=== PATIENT | female | born 1985 | race American Indian/Alaskan Native ===

== ENCOUNTER 2017-03-01 01:30 | Emergency (ER) | payer SELFPAY ==
[2017-03-01 02:01] LABS: Basophils % (Auto) 1.1 % (0.0-1.8); Hematocrit 30.7 % (30.3-42.9); Hemoglobin 9.6 gm/dl (10.1-14.3); Mean Corpuscular HGB Conc 31 % (30-34); Mean Corpuscular Volume 72 fl (79-97); Platelet Count 306 K/mm3 (140-440); Red Blood Count 4.27 M/mm3 (3.65-5.03); Red Cell Distribution Width 19.9 % (13.2-15.2); White Blood Count 5.6 K/mm3 (4.5-11.0)
[2017-03-01 02:06] LABS: Mean Corpuscular Hemoglobin 23 pg (28-32)
[2017-03-01 02:19] LABS: Anion Gap 21 mmol/L; BUN/Creatinine Ratio 8.88; Blood Urea Nitrogen 8 mg/dL (7-17); Calcium 8.6 mg/dL (8.4-10.2); Carbon Dioxide 21 mmol/L (22-30); Chloride 100.9 mmol/L (98-107); Glucose 91 mg/dL (65-100); Potassium 3.8 mmol/L (3.6-5.0); Sodium 139 mmol/L (137-145)
[2017-03-01 03:07] LABS: Alanine Aminotransferase 9 units/L (7-56); Albumin 3.8 g/dL (3.9-5); Alkaline Phosphatase 65 units/L (35-129); Anion Gap 19 mmol/L; Blood Urea Nitrogen 8 mg/dL (7-17); Calcium 8.8 mg/dL (8.4-10.2); Carbon Dioxide 22 mmol/L (22-30); Chloride 101.7 mmol/L (98-107); Glucose 99 mg/dL (65-100); Potassium 3.8 mmol/L (3.6-5.0); Sodium 139 mmol/L (137-145); Total Protein 7.5 g/dL (6.3-8.2)
[2017-03-01] MEDS ORDERED: NACL 0.9% 1000 ML 1,000 ML IV ONE ×2 (03:08→04:16)
--- NOTE | 2017-03-01 03:43 | Cat Scan Report ---
FINAL REPORT EXAM: CT HEAD/BRAIN WO CON HISTORY: syncope, drowsiness COMPARISON: None available. TECHNIQUE: Axial images obtained skull base through vertex. FINDINGS: No acute intracranial hemorrhage, midline shift or pathologic extra axial fluid collection. Ventricles and cisterns are normal in size and configuration for the patient's age. Kelsey-white differentiation preserved. Calvarium grossly intact. Visualized para-nasal sinuses and mastoid air cells are clear. Visualized orbits are grossly unremarkable. IMPRESSION: No grossly acute intracranial abnormality.
--- NOTE | 2017-03-01 04:20 | Emergency Department Report ---
ED Syncope HPI - General Chief Complaint: Syncope Stated Complaint: AMS Time Seen by Provider: 03/01/17 03:02 Source: patient Exam Limitations: no limitations - History of Present Illness Initial Comments: 31-year-old female with no known past medical history presents to the hospital after being unconscious by a friend. Patient is drowsy but arousable to tactile stimulation. She falls asleep during history taking and does not recall what happened prior to arrival. She is oriented to place and year. Per EMS sheet patient's friend went to the store and when she returned she found the patient unresponsive laying on the bed with incontinence. After several minutes patient was able to answer questions to person place but not time drug paraphernalia (crack pipe) was noted on patient's bed however, patient denied using drugs this evening. EMS reports. She does complain of feeling tired and she was able to answer questions although drowsy. No complaints of tongue laceration or abrasion. - Related Data Allergies/Adverse Reactions: Allergies No Known Allergies Allergy (Verified 03/01/17 01:59) Home Medications: Ambulatory Orders No Known Home Medications [No Reported Home Medications] 03/01/17 ED Review of Systems ROS: Stated complaint: AMS Other details as noted in HPI Comment: All other systems reviewed and negative Other: Constitutional: No fevers chills Eyes: No eye pain visual changes ENT: No ear pain or throat pain Neck: Denies pain Respiratory: Denies cough wheezing shortness of breath Cardiovascular: Denies chest pain, palpitations, syncope GI: Denies abdominal pain, nausea, vomiting, diarrhea : Denies dysuria Musculoskeletal: Denies back pain Skin: Denies rash, lesions, erythema Neurologic: Denies headache, numbness, weakness Psychiatric: Denies suicidal ideation, hallucinations ED Past Medical Hx - Past Medical History Previous Medical History?: No - Surgical History Past Surgical History?: No - Social History Smoking Status: Current Every Day Smoker Substance Use Type: None - Medications Home Medications: Home Medications Medication Instructions Recorded Confirmed Last Taken Type No Known Home Medications [No 03/01/17 03/01/17 Unknown History Reported Home Medications] ED Physical Exam - General Limitations: No Limitations - Other Other exam information: General: Drowsy and falling asleep intermittently Eyes exam: Normal appearance, pupils equal reactive to light, extraocular movements intact. Patient has a colored contact in her right eye but it is missing from the left ENT: Moist mucous membrane, normal oropharynx Neck exam: Normal inspection, full range of motion, no meningismus nontender Respiratory exam: Clear to auscultation bilateral, no wheezes, rales, crackles Cardiovascular: Normal rate and rhythm, normal heart sounds Abdomen: Soft, nondistended, and nontender, with normal bowel sounds, no rebound, or guarding Extremity: Full range of motion normal inspection no deformity Back: Normal Inspection, full range of motion, no tenderness Neurologic: Drowsy but arousable to tactile stimulation, oriented x3, cranial nerves intact, no motor or sensory deficit Psychiatric: normal affect, normal mood Skin: Warm, dry, intact ED Course Vital Signs 03/01/17 03/01/17 03/01/17 01:37 01:50 01:58 Temperature 97.7 F 97.7 F Pulse Rate 102 H 88 Respiratory 16 16 Rate Blood Pressure 138/88 138/88 Blood Pressure 138/88 [Left] O2 Sat by Pulse 100 99 Oximetry 03/01/17 03/01/17 03/01/17 02:00 02:03 02:30 Temperature Pulse Rate 94 H Respiratory Rate Blood Pressure 137/85 138/88 Blood Pressure [Left] O2 Sat by Pulse 99 100 Oximetry 03/01/17 03/01/17 03/01/17 03:00 04:46 05:00 Temperature Pulse Rate Respiratory Rate Blood Pressure 142/91 137/101 125/91 Blood Pressure [Left] O2 Sat by Pulse 100 100 100 Oximetry 03/01/17 03/01/17 03/01/17 05:30 06:00 06:30 Temperature Pulse Rate Respiratory Rate Blood Pressure 142/91 133/87 133/87 Blood Pressure [Left] O2 Sat by Pulse 100 100 100 Oximetry 03/01/17 03/01/17 03/01/17 07:00 07:10 07:30 Temperature 98.2 F Pulse Rate Respiratory Rate Blood Pressure 125/86 125/86 Blood Pressure [Left] O2 Sat by Pulse 100 100 Oximetry 03/01/17 03/01/17 03/01/17 08:00 08:30 09:00 Temperature Pulse Rate Respiratory Rate Blood Pressure 121/81 121/81 132/94 Blood Pressure [Left] O2 Sat by Pulse 100 100 100 Oximetry 03/01/17 03/01/17 03/01/17 10:00 11:00 12:00 Temperature Pulse Rate Respiratory Rate Blood Pressure 135/95 135/95 124/89 Blood Pressure [Left] O2 Sat by Pulse 100 100 100 Oximetry 03/01/17 03/01/17 03/01/17 13:00 14:00 15:00 Temperature Pulse Rate Respiratory Rate Blood Pressure 124/89 138/87 139/78 Blood Pressure [Left] O2 Sat by Pulse 100 100 100 Oximetry 03/01/17 03/01/17 03/01/17 16:00 17:00 18:00 Temperature Pulse Rate Respiratory Rate Blood Pressure 138/97 124/84 124/84 Blood Pressure [Left] O2 Sat by Pulse 100 100 100 Oximetry 03/01/17 18:41 Temperature 98.2 F Pulse Rate Respiratory Rate Blood Pressure Blood Pressure [Left] O2 Sat by Pulse Oximetry - Reevaluation(s) Reevaluation #1: 03/01/17 05:54 pt received 1 L of IV fluids via EMS an additional liter in the ed ED Medical Decision Making - Lab Data Result diagrams: 03/01/17 01:47 03/01/17 02:27 Lab Results 03/01/17 03/01/17 03/01/17 Range/Units 01:47 01:47 01:47 WBC (4.5-11.0) K/mm3 RBC (3.65-5.03) M/mm3 Hgb (10.1-14.3) gm/dl Hct (30.3-42.9) % MCV (79-97) fl MCH (28-32) pg MCHC (30-34) % RDW (13.2-15.2) % Plt Count (140-440) K/mm3 Lymph % (Auto) (13.4-35.0) % Coffee % (Auto) (0.0-7.3) % Eos % (Auto) (0.0-4.3) % Baso % (Auto) (0.0-1.8) % Lymph # (1.2-5.4) K/mm3 Coffee # (0.0-0.8) K/mm3 Eos # (0.0-0.4) K/mm3 Baso # (0.0-0.1) K/mm3 Seg Neutrophils % (40.0-70.0) % Seg Neutrophils # (1.8-7.7) K/mm3 Sodium 139 (137-145) mmol/L Potassium 3.8 (3.6-5.0) mmol/L Chloride 100.9 (98-107) mmol/L Carbon Dioxide 21 L (22-30) mmol/L Anion Gap 21 mmol/L BUN 8 (7-17) mg/dL Creatinine 0.9 (0.7-1.2) mg/dL Estimated GFR > 60 ml/min BUN/Creatinine Ratio 8.88 % Glucose 91 (65-100) mg/dL POC Glucose (70-105) Lactic Acid (0.7-2.0) mmol/L Calcium 8.6 (8.4-10.2) mg/dL Magnesium (1.7-2.3) mg/dL Total Bilirubin (0.1-1.2) mg/dL AST (5-40) units/L ALT (7-56) units/L Alkaline Phosphatase (35-129) units/L Total Creatine Kinase (30-135) units/L Total Protein (6.3-8.2) g/dL Albumin (3.9-5) g/dL Albumin/Globulin Ratio % TSH (0.270-4.200) mlU/mL HCG, Qual Negative (Negative) Urine Color (Yellow) Urine Turbidity (Clear) Urine pH (5.0-7.0) Ur Specific [place] (1.003-1.030) Urine Protein (Negative) mg/dL Urine Glucose (UA) (Negative) mg/dL Urine Ketones (Negative) mg/dL Urine Blood (Negative) Urine Nitrite (Negative) Urine Bilirubin (Negative) Urine Urobilinogen (<2.0) mg/dL Ur Leukocyte Esterase (Negative) Urine WBC (Auto) (0.0-6.0) /HPF Urine RBC (Auto) (0.0-6.0) /HPF Urine Mucus /HPF Salicylates (2.8-20.0) mg/dL Urine Opiates Screen Urine Methadone Screen Acetaminophen (10.0-30.0) ug/mL Ur Barbiturates Screen Ur Phencyclidine Scrn Ur Amphetamines Screen U Benzodiazepines Scrn Urine Cocaine Screen U Marijuana (THC) Screen Drugs of Abuse Note Plasma/Serum Alcohol < 0.01 (0-0.07) gm% 05/18/17 05/18/17 05/18/17 Range/Units 01:47 01:47 01:47 WBC 5.6 (4.5-11.0) K/mm3 RBC 4.27 (3.65-5.03) M/mm3 Hgb 9.6 L (10.1-14.3) gm/dl Hct 30.7 (30.3-42.9) % MCV 72 L (79-97) fl MCH 23 L (28-32) pg MCHC 31 (30-34) % RDW 19.9 H (13.2-15.2) % Plt Count 306 (140-440) K/mm3 Lymph % (Auto) 37.0 H (13.4-35.0) % Coffee % (Auto) 11.4 H (0.0-7.3) % Eos % (Auto) 4.0 (0.0-4.3) % Baso % (Auto) 1.1 (0.0-1.8) % Lymph # 2.1 (1.2-5.4) K/mm3 Coffee # 0.6 (0.0-0.8) K/mm3 Eos # 0.2 (0.0-0.4) K/mm3 Baso # 0.1 (0.0-0.1) K/mm3 Seg Neutrophils % 46.5 (40.0-70.0) % Seg Neutrophils # 2.6 (1.8-7.7) K/mm3 Sodium (137-145) mmol/L Potassium (3.6-5.0) mmol/L Chloride (98-107) mmol/L Carbon Dioxide (22-30) mmol/L Anion Gap mmol/L BUN (7-17) mg/dL Creatinine (0.7-1.2) mg/dL Estimated GFR ml/min BUN/Creatinine Ratio % Glucose (65-100) mg/dL POC Glucose (70-105) Lactic Acid (0.7-2.0) mmol/L Calcium (8.4-10.2) mg/dL Magnesium 2.00 (1.7-2.3) mg/dL Total Bilirubin (0.1-1.2) mg/dL AST (5-40) units/L ALT (7-56) units/L Alkaline Phosphatase (35-129) units/L Total Creatine Kinase (30-135) units/L Total Protein (6.3-8.2) g/dL Albumin (3.9-5) g/dL Albumin/Globulin Ratio % TSH 1.140 (0.270-4.200) mlU/mL HCG, Qual (Negative) Urine Color (Yellow) Urine Turbidity (Clear) Urine pH (5.0-7.0) Ur Specific [place] (1.003-1.030) Urine Protein (Negative) mg/dL Urine Glucose (UA) (Negative) mg/dL Urine Ketones (Negative) mg/dL Urine Blood (Negative) Urine Nitrite (Negative) Urine Bilirubin (Negative) Urine Urobilinogen (<2.0) mg/dL Ur Leukocyte Esterase (Negative) Urine WBC (Auto) (0.0-6.0) /HPF Urine RBC (Auto) (0.0-6.0) /HPF Urine Mucus /HPF Salicylates (2.8-20.0) mg/dL Urine Opiates Screen Urine Methadone Screen Acetaminophen (10.0-30.0) ug/mL Ur Barbiturates Screen Ur Phencyclidine Scrn Ur Amphetamines Screen U Benzodiazepines Scrn Urine Cocaine Screen U Marijuana (THC) Screen Drugs of Abuse Note Plasma/Serum Alcohol (0-0.07) gm% 03/01/17 03/01/17 03/01/17 Range/Units 01:47 01:47 02:08 WBC (4.5-11.0) K/mm3 RBC (3.65-5.03) M/mm3 Hgb (10.1-14.3) gm/dl Hct (30.3-42.9) % MCV (79-97) fl MCH (28-32) pg MCHC (30-34) % RDW (13.2-15.2) % Plt Count (140-440) K/mm3 Lymph % (Auto) (13.4-35.0) % Coffee % (Auto) (0.0-7.3) % Eos % (Auto) (0.0-4.3) % Baso % (Auto) (0.0-1.8) % Lymph # (1.2-5.4) K/mm3 Coffee # (0.0-0.8) K/mm3 Eos # (0.0-0.4) K/mm3 Baso # (0.0-0.1) K/mm3 Seg Neutrophils % (40.0-70.0) % Seg Neutrophils # (1.8-7.7) K/mm3 Sodium (137-145) mmol/L Potassium (3.6-5.0) mmol/L Chloride (98-107) mmol/L Carbon Dioxide (22-30) mmol/L Anion Gap mmol/L BUN (7-17) mg/dL Creatinine (0.7-1.2) mg/dL Estimated GFR ml/min BUN/Creatinine Ratio % Glucose (65-100) mg/dL POC Glucose 91 (70-105) Lactic Acid (0.7-2.0) mmol/L Calcium (8.4-10.2) mg/dL Magnesium (1.7-2.3) mg/dL Total Bilirubin (0.1-1.2) mg/dL AST (5-40) units/L ALT (7-56) units/L Alkaline Phosphatase (35-129) units/L Total Creatine Kinase (30-135) units/L Total Protein (6.3-8.2) g/dL Albumin (3.9-5) g/dL Albumin/Globulin Ratio % TSH (0.270-4.200) mlU/mL HCG, Qual (Negative) Urine Color (Yellow) Urine Turbidity (Clear) Urine pH (5.0-7.0) Ur Specific [place] (1.003-1.030) Urine Protein (Negative) mg/dL Urine Glucose (UA) (Negative) mg/dL Urine Ketones (Negative) mg/dL Urine Blood (Negative) Urine Nitrite (Negative) Urine Bilirubin (Negative) Urine Urobilinogen (<2.0) mg/dL Ur Leukocyte Esterase (Negative) Urine WBC (Auto) (0.0-6.0) /HPF Urine RBC (Auto) (0.0-6.0) /HPF Urine Mucus /HPF Salicylates < 0.3 L (2.8-20.0) mg/dL Urine Opiates Screen Urine Methadone Screen Acetaminophen < 15.0 (10.0-30.0) ug/mL Ur Barbiturates Screen Ur Phencyclidine Scrn Ur Amphetamines Screen U Benzodiazepines Scrn Urine Cocaine Screen U Marijuana (THC) Screen Drugs of Abuse Note Plasma/Serum Alcohol (0-0.07) gm% 03/01/17 03/01/17 03/01/17 Range/Units 02:27 02:27 02:27 WBC (4.5-11.0) K/mm3 RBC (3.65-5.03) M/mm3 Hgb (10.1-14.3) gm/dl Hct (30.3-42.9) % MCV (79-97) fl MCH (28-32) pg MCHC (30-34) % RDW (13.2-15.2) % Plt Count (140-440) K/mm3 Lymph % (Auto) (13.4-35.0) % Coffee % (Auto) (0.0-7.3) % Eos % (Auto) (0.0-4.3) % Baso % (Auto) (0.0-1.8) % Lymph # (1.2-5.4) K/mm3 Coffee # (0.0-0.8) K/mm3 Eos # (0.0-0.4) K/mm3 Baso # (0.0-0.1) K/mm3 Seg Neutrophils % (40.0-70.0) % Seg Neutrophils # (1.8-7.7) K/mm3 Sodium 139 (137-145) mmol/L Potassium 3.8 (3.6-5.0) mmol/L Chloride 101.7 (98-107) mmol/L Carbon Dioxide 22 (22-30) mmol/L Anion Gap 19 mmol/L BUN 8 (7-17) mg/dL Creatinine 0.8 (0.7-1.2) mg/dL Estimated GFR > 60 ml/min BUN/Creatinine Ratio 10.00 % Glucose 99 (65-100) mg/dL POC Glucose (70-105) Lactic Acid 1.30 (0.7-2.0) mmol/L Calcium 8.8 (8.4-10.2) mg/dL Magnesium 2.10 (1.7-2.3) mg/dL Total Bilirubin 0.30 (0.1-1.2) mg/dL AST 14 (5-40) units/L ALT 9 (7-56) units/L Alkaline Phosphatase 65 (35-129) units/L Total Creatine Kinase 131 (30-135) units/L Total Protein 7.5 (6.3-8.2) g/dL Albumin 3.8 L (3.9-5) g/dL Albumin/Globulin Ratio 1.0 % TSH (0.270-4.200) mlU/mL HCG, Qual (Negative) Urine Color (Yellow) Urine Turbidity (Clear) Urine pH (5.0-7.0) Ur Specific [place] (1.003-1.030) Urine Protein (Negative) mg/dL Urine Glucose (UA) (Negative) mg/dL Urine Ketones (Negative) mg/dL Urine Blood (Negative) Urine Nitrite (Negative) Urine Bilirubin (Negative) Urine Urobilinogen (<2.0) mg/dL Ur Leukocyte Esterase (Negative) Urine WBC (Auto) (0.0-6.0) /HPF Urine RBC (Auto) (0.0-6.0) /HPF Urine Mucus /HPF Salicylates (2.8-20.0) mg/dL Urine Opiates Screen Urine Methadone Screen Acetaminophen (10.0-30.0) ug/mL Ur Barbiturates Screen Ur Phencyclidine Scrn Ur Amphetamines Screen U Benzodiazepines Scrn Urine Cocaine Screen U Marijuana (THC) Screen Drugs of Abuse Note Plasma/Serum Alcohol (0-0.07) gm% 03/01/17 03/01/17 Range/Units 04:44 04:44 WBC (4.5-11.0) K/mm3 RBC (3.65-5.03) M/mm3 Hgb (10.1-14.3) gm/dl Hct (30.3-42.9) % MCV (79-97) fl MCH (28-32) pg MCHC (30-34) % RDW (13.2-15.2) % Plt Count (140-440) K/mm3 Lymph % (Auto) (13.4-35.0) % Coffee % (Auto) (0.0-7.3) % Eos % (Auto) (0.0-4.3) % Baso % (Auto) (0.0-1.8) % Lymph # (1.2-5.4) K/mm3 Coffee # (0.0-0.8) K/mm3 Eos # (0.0-0.4) K/mm3 Baso # (0.0-0.1) K/mm3 Seg Neutrophils % (40.0-70.0) % Seg Neutrophils # (1.8-7.7) K/mm3 Sodium (137-145) mmol/L Potassium (3.6-5.0) mmol/L Chloride (98-107) mmol/L Carbon Dioxide (22-30) mmol/L Anion Gap mmol/L BUN (7-17) mg/dL Creatinine (0.7-1.2) mg/dL Estimated GFR ml/min BUN/Creatinine Ratio % Glucose (65-100) mg/dL POC Glucose (70-105) Lactic Acid (0.7-2.0) mmol/L Calcium (8.4-10.2) mg/dL Magnesium (1.7-2.3) mg/dL Total Bilirubin (0.1-1.2) mg/dL AST (5-40) units/L ALT (7-56) units/L Alkaline Phosphatase (35-129) units/L Total Creatine Kinase (30-135) units/L Total Protein (6.3-8.2) g/dL Albumin (3.9-5) g/dL Albumin/Globulin Ratio % TSH (0.270-4.200) mlU/mL HCG, Qual (Negative) Urine Color Yellow (Yellow) Urine Turbidity Clear (Clear) Urine pH 6.0 (5.0-7.0) Ur Specific [place] 1.012 (1.003-1.030) Urine Protein <15 mg/dl (Negative) mg/dL Urine Glucose (UA) Negative (Negative) mg/dL Urine Ketones Negative (Negative) mg/dL Urine Blood Negative (Negative) Urine Nitrite Negative (Negative) Urine Bilirubin Negative (Negative) Urine Urobilinogen < 0.2 (<2.0) mg/dL Ur Leukocyte Esterase Negative (Negative) Urine WBC (Auto) 1.0 (0.0-6.0) /HPF Urine RBC (Auto) 2.0 (0.0-6.0) /HPF Urine Mucus Few /HPF Salicylates (2.8-20.0) mg/dL Urine Opiates Screen Presumptive positive Urine Methadone Screen Presumptive negative Acetaminophen (10.0-30.0) ug/mL Ur Barbiturates Screen Presumptive negative Ur Phencyclidine Scrn Presumptive negative Ur Amphetamines Screen Presumptive negative U Benzodiazepines Scrn Presumptive negative Urine Cocaine Screen Presumptive negative U Marijuana (THC) Screen Presumptive positive Drugs of Abuse Note Disclamer Plasma/Serum Alcohol (0-0.07) gm% - EKG Data -: EKG Interpreted by Me (sinus rate 94 with sinus arrhythmia and no ST elevation or T inversion) - EKG Data When compared to previous EKG there are: previous EKG unavailable - Radiology Data Radiology results: report reviewed (CT head: No acute findings) - Medical Decision Making Patient UDS is positive for marijuana and opiates. No other acute lab or CT abnormality. Patient may have had a seizure episode was unwitnessed. It is also possible that patient was using drugs given that drug paraphernalia was found at the scene. Patient will be discharged home once she is fully awake - Differential Diagnosis drug abuse, intracranial hemorrhage, encephalopathy, seizure, syncope Critical Care Time: No Critical care attestation.: If time is entered above; I have spent that time in minutes in the direct care of this critically ill patient, excluding procedure time. ED Disposition Clinical Impression: Altered mental status, Opiate use, Marijuana use, Anemia Disposition: DISCHARGED TO HOME OR SELFCARE Is pt being admited?: No Does the pt Need Aspirin: No Condition: Stable Instructions: Polysubstance Abuse (ED), Altered Mental Status (ED) Additional Instructions: Your urine positive for marijuana and opiates. The rest of the lab work and CAT scan was normal. Follow-up with your primary care doctor for further evaluation. Return if symptoms worsen Referrals: [facility] [Provider Group] - 2-3 Days (primary care clinic) DION MAHAN MD, PHD [Staff Physician] - 2-3 Days (primary care doctor ) Time of Disposition: 05:59 (s/o to [facility]ana when alert and steady ambulation)
[2017-03-01 04:59] LABS: Urine Drugs of Abuse Note Disclamer
[2017-03-01 05:18] LABS: Bilirubin,Urine Negative (Negative); Ketones,Urine Negative (Negative)
[2017-03-01 05:19] LABS: Blood,Urine Negative (Negative); Leukocyte Esterase,Urine Negative (Negative); Mucus,Urine Few /HPF; Nitrite,Urine Negative (Negative); Protein,Urine <15 mg/dL mg/dL (Negative); Urobilinogen,Urine < 0.2 mg/dL (<2.0)
[2017-03-01 18:37] VITALS: BP 124/84
== END 2017-03-01 18:40 | disposition home or self-care (01) ==
LOC: ED 01:30
DX: R41.82 Altered mental status, unspecified (principal); F12.10 Cannabis abuse, uncomplicated; D64.9 Anemia, unspecified; F11.90 Opioid use, unspecified, uncomplicated; F17.200 Nicotine dependence, unspecified, uncomplicated
CPT/HCPCS: 36415; 70450; 80048; 80053; 80307; 81001; 82140; 82550; 82962; 83735; 84443; 84703; 85025; 93005; 93010; 96360; 96361; 99285; G0480; J7030; 80320

== ENCOUNTER 2017-03-08 11:56 | Emergency (ER) | payer SELFPAY ==
[2017-03-08] MEDS ORDERED: KEPPRA 1,000 MG/NS 0.75% 100ML 1,000 MG/100 ML BAG IV ONE (12:27)
[2017-03-08 12:39] LABS: Urine Drugs of Abuse Note Disclamer
[2017-03-08 13:08] LABS: Basophils % (Auto) 0.9 % (0.0-1.8); Eosinophils % (Auto) 2.7 % (0.0-4.3); Hematocrit 31.9 % (30.3-42.9); Hemoglobin 9.9 gm/dl (10.1-14.3); Mean Corpuscular HGB Conc 31 % (30-34); Mean Corpuscular Hemoglobin 23 pg (28-32); Mean Corpuscular Volume 74 fl (79-97); Platelet Count 290 K/mm3 (140-440); Red Blood Count 4.31 M/mm3 (3.65-5.03); White Blood Count 6.3 K/mm3 (4.5-11.0)
[2017-03-08 13:16] LABS: Anion Gap 17 mmol/L; Blood Urea Nitrogen 14 mg/dL (7-17); Calcium 8.7 mg/dL (8.4-10.2); Carbon Dioxide 25 mmol/L (22-30); Chloride 102.5 mmol/L (98-107); Creatine Kinase 101 units/L (30-135); Glucose 85 mg/dL (65-100); Potassium 4.2 mmol/L (3.6-5.0); Sodium 140 mmol/L (137-145)
--- NOTE | 2017-03-08 13:24 | Emergency Department Report ---
ED Seizure HPI - General Chief Complaint: Seizure Stated Complaint: SEIZURE Source: patient, EMS Mode of arrival: Stretcher Limitations: No Limitations - History of Present Illness Initial Comments: 31-year-old female with a history of crack abuse presents to the hospital complaining of seizure. Patient had a witnessed seizure at approximately 11:18 today. Patient is initially post ictal per EMS per currently alert and oriented 3. Patient admits to using crack today prior to the seizure onset. I evaluated this same patient on March 01 for altered mental status. Patient was found altered by a friend with crack at the scene. Patient was drowsy for an extended time doing a ED stay. Altered mental status workup including CAT scan was unremarkable. UDS was positive for opiates and marijuana at that time. Patient was subsequently discharged. Now patient admits to crack use and states that this is her third seizure total and each episode occurred after using crack. She denies any pain currently. She denies tongue laceration or urinary incontinence. - Related Data Previous Rx's Medication Instructions Recorded Last Taken Type levETIRAcetam [Keppra TAB] 500 mg PO BID #60 tablet 03/08/17 Unknown Rx Allergies Allergy/AdvReac Type Severity Reaction Status Date / Time No Known Allergies Allergy Verified 03/01/17 01:59 ED Review of Systems ROS: Stated complaint: SEIZURE Other details as noted in HPI Comment: All other systems reviewed and negative Other: Constitutional: No fevers chills Eyes: No eye pain visual changes ENT: No ear pain or throat pain Neck: Denies pain Respiratory: Denies cough wheezing shortness of breath Cardiovascular: Denies chest pain, palpitations, syncope GI: Denies abdominal pain, nausea, vomiting, diarrhea : Denies dysuria Musculoskeletal: Denies back pain Skin: Denies rash, lesions, erythema Neurologic: Denies headache, numbness, weakness Psychiatric: Denies suicidal ideation, hallucinations ED Past Medical Hx - Past Medical History Previous Medical History?: No - Surgical History Past Surgical History?: No - Social History Smoking Status: Current Every Day Smoker Substance Use Type: Other - Medications Home Medications: Home Medications Medication Instructions Recorded Confirmed Last Taken Type levETIRAcetam [Keppra TAB] 500 mg PO BID #60 tablet 03/08/17 Unknown Rx ED Physical Exam - General Limitations: No Limitations - Other Other exam information: General: No limitations, patient is alert in no acute distress Head exam: Atraumatic, normocephalic Eyes exam: Normal appearance, pupils equal reactive to light, extraocular movements intact. Patient has colored contacts ENT: Moist mucous membrane, normal oropharynx Neck exam: Normal inspection, full range of motion, no meningismus nontender Respiratory exam: Clear to auscultation bilateral, no wheezes, rales, crackles Cardiovascular: Normal rate and rhythm, normal heart sounds Abdomen: Soft, nondistended, and nontender, with normal bowel sounds, no rebound, or guarding Extremity: Full range of motion normal inspection no deformity Back: Normal Inspection, full range of motion, no tenderness Neurologic: Alert, oriented x3, cranial nerves intact, no motor or sensory deficit Psychiatric: normal affect, normal mood Skin: Warm, dry, intact ED Course Vital Signs 03/08/17 03/08/17 03/08/17 12:07 12:18 13:00 Temperature 97.4 F L Pulse Rate 90 Respiratory 18 Rate Blood Pressure 145/94 145/95 145/94 O2 Sat by Pulse 100 100 100 Oximetry 03/08/17 14:00 Temperature Pulse Rate Respiratory Rate Blood Pressure 131/94 O2 Sat by Pulse 100 Oximetry - Reevaluation(s) Reevaluation #1: 03/08/17 13:47 wilfredo pending - Consultations Consultation #1: 03/08/17 13:31 Case was discussed with Dr. Diggs with neurology and recommends seizure medication and outpatient follow-up ED Medical Decision Making - Lab Data Result diagrams: 03/08/17 12:42 03/08/17 12:42 Lab Results 03/08/17 03/08/17 03/08/17 Range/Units 12:25 12:30 12:42 WBC 6.3 (4.5-11.0) K/mm3 RBC 4.31 (3.65-5.03) M/mm3 Hgb 9.9 L (10.1-14.3) gm/dl Hct 31.9 (30.3-42.9) % MCV 74 L (79-97) fl MCH 23 L (28-32) pg MCHC 31 (30-34) % RDW 19.0 H (13.2-15.2) % Plt Count 290 (140-440) K/mm3 Lymph % (Auto) 28.2 (13.4-35.0) % [place] % (Auto) 12.9 H (0.0-7.3) % Eos % (Auto) 2.7 (0.0-4.3) % Baso % (Auto) 0.9 (0.0-1.8) % Lymph # 1.8 (1.2-5.4) K/mm3 [place] # 0.8 (0.0-0.8) K/mm3 Eos # 0.2 (0.0-0.4) K/mm3 Baso # 0.1 (0.0-0.1) K/mm3 Seg Neutrophils % 55.3 (40.0-70.0) % Seg Neutrophils # 3.5 (1.8-7.7) K/mm3 Sodium (137-145) mmol/L Potassium (3.6-5.0) mmol/L Chloride (98-107) mmol/L Carbon Dioxide (22-30) mmol/L Anion Gap mmol/L BUN (7-17) mg/dL Creatinine (0.7-1.2) mg/dL Estimated GFR ml/min BUN/Creatinine Ratio % Glucose (65-100) mg/dL POC Glucose 94 (70-105) Lactic Acid (0.7-2.0) mmol/L Calcium (8.4-10.2) mg/dL Magnesium (1.7-2.3) mg/dL Total Creatine Kinase (30-135) units/L HCG, Qual (Negative) Urine Opiates Screen Presumptive negative Urine Methadone Screen Presumptive negative Ur Barbiturates Screen Presumptive negative Ur Phencyclidine Scrn Presumptive negative Ur Amphetamines Screen Presumptive negative U Benzodiazepines Scrn Presumptive negative Urine Cocaine Screen Presumptive positive U Marijuana (THC) Screen Presumptive negative Drugs of Abuse Note Disclamer Plasma/Serum Alcohol (0-0.07) gm% 03/08/17 03/08/17 03/08/17 Range/Units 12:42 12:42 12:42 WBC (4.5-11.0) K/mm3 RBC (3.65-5.03) M/mm3 Hgb (10.1-14.3) gm/dl Hct (30.3-42.9) % MCV (79-97) fl MCH (28-32) pg MCHC (30-34) % RDW (13.2-15.2) % Plt Count (140-440) K/mm3 Lymph % (Auto) (13.4-35.0) % [place] % (Auto) (0.0-7.3) % Eos % (Auto) (0.0-4.3) % Baso % (Auto) (0.0-1.8) % Lymph # (1.2-5.4) K/mm3 [place] # (0.0-0.8) K/mm3 Eos # (0.0-0.4) K/mm3 Baso # (0.0-0.1) K/mm3 Seg Neutrophils % (40.0-70.0) % Seg Neutrophils # (1.8-7.7) K/mm3 Sodium 140 (137-145) mmol/L Potassium 4.2 (3.6-5.0) mmol/L Chloride 102.5 (98-107) mmol/L Carbon Dioxide 25 (22-30) mmol/L Anion Gap 17 mmol/L BUN 14 (7-17) mg/dL Creatinine 0.8 (0.7-1.2) mg/dL Estimated GFR > 60 ml/min BUN/Creatinine Ratio 17.50 % Glucose 85 (65-100) mg/dL POC Glucose (70-105) Lactic Acid 2.30 H* (0.7-2.0) mmol/L Calcium 8.7 (8.4-10.2) mg/dL Magnesium 2.00 (1.7-2.3) mg/dL Total Creatine Kinase 101 (30-135) units/L HCG, Qual (Negative) Urine Opiates Screen Urine Methadone Screen Ur Barbiturates Screen Ur Phencyclidine Scrn Ur Amphetamines Screen U Benzodiazepines Scrn Urine Cocaine Screen U Marijuana (THC) Screen Drugs of Abuse Note Plasma/Serum Alcohol < 0.01 (0-0.07) gm% 03/08/17 Range/Units 12:42 WBC (4.5-11.0) K/mm3 RBC (3.65-5.03) M/mm3 Hgb (10.1-14.3) gm/dl Hct (30.3-42.9) % MCV (79-97) fl MCH (28-32) pg MCHC (30-34) % RDW (13.2-15.2) % Plt Count (140-440) K/mm3 Lymph % (Auto) (13.4-35.0) % [place] % (Auto) (0.0-7.3) % Eos % (Auto) (0.0-4.3) % Baso % (Auto) (0.0-1.8) % Lymph # (1.2-5.4) K/mm3 [place] # (0.0-0.8) K/mm3 Eos # (0.0-0.4) K/mm3 Baso # (0.0-0.1) K/mm3 Seg Neutrophils % (40.0-70.0) % Seg Neutrophils # (1.8-7.7) K/mm3 Sodium (137-145) mmol/L Potassium (3.6-5.0) mmol/L Chloride (98-107) mmol/L Carbon Dioxide (22-30) mmol/L Anion Gap mmol/L BUN (7-17) mg/dL Creatinine (0.7-1.2) mg/dL Estimated GFR ml/min BUN/Creatinine Ratio % Glucose (65-100) mg/dL POC Glucose (70-105) Lactic Acid (0.7-2.0) mmol/L Calcium (8.4-10.2) mg/dL Magnesium (1.7-2.3) mg/dL Total Creatine Kinase (30-135) units/L HCG, Qual Negative (Negative) Urine Opiates Screen Urine Methadone Screen Ur Barbiturates Screen Ur Phencyclidine Scrn Ur Amphetamines Screen U Benzodiazepines Scrn Urine Cocaine Screen U Marijuana (THC) Screen Drugs of Abuse Note Plasma/Serum Alcohol (0-0.07) gm% - Medical Decision Making She received IV Load of Keppra in the ED. No further seizure activity. Patient is about elevation of lactic acid however, this is likely secondary to recent seizure activity. No signs of rhabdomyolysis at this time. - Differential Diagnosis new onset seizure, drug abuse Critical Care Time: No Critical care attestation.: If time is entered above; I have spent that time in minutes in the direct care of this critically ill patient, excluding procedure time. ED Disposition Clinical Impression: Seizure, Cocaine abuse Disposition: DISCHARGED TO HOME OR SELFCARE Is pt being admited?: No Does the pt Need Aspirin: No Condition: Stable Instructions: Recurrent Seizures Adult (ED), Cocaine Abuse (ED) Additional Instructions: Take the seizure medication as prescribed. I recommend to stop crack use because it is causing you to have seizures. Follow-up with the neurologist and primary care/clinic provided for further workup and evaluation. No driving until cleared by neurology due to the risk of seizure while operating a vehicle Prescriptions: levETIRAcetam [Keppra TAB] 500 mg PO BID #60 tablet Referrals: EDDIE VAUGHAN MD [Staff Physician] - 3-5 Days (Neurology) RILEY GEORGES MD [Staff Physician] - 3-5 Days (Neurology) OTILIO PATTERSON MD [Staff Physician] - 3-5 Days (Primary care doctor) [facility] [Provider Group] - 3-5 Days (Primary care clinic) Time of Disposition: 16:58
[2017-03-08] MEDS ORDERED: KETALAR IV ONE ×2 (13:52)
[2017-03-08 19:17] VITALS: BP 140/95
== END 2017-03-08 19:00 | disposition home or self-care (01) ==
LOC: ED 11:56
DX: R56.9 Unspecified convulsions (principal); F14.10 Cocaine abuse, uncomplicated; F17.200 Nicotine dependence, unspecified, uncomplicated
CPT/HCPCS: 36415; 80048; 80307; 82140; 82550; 82962; 83735; 84703; 85025; 96374; 99284; G0480; J1953; 80320

== ENCOUNTER 2019-08-01 23:36 | Emergency (ER) | payer SELFPAY ==
[2019-08-02] MEDS ORDERED: KEPPRA PO ONE (00:17)
--- NOTE | 2019-08-02 00:26 | Emergency Department Report ---
HPI - General Chief Complaint: Seizure Time Seen by Provider: 08/02/19 00:03 - HPI HPI: 33-year-old female presents to the emergency department via EMS [place] the patient allegedly had a seizure. Supposedly lasted less than 1 minute and the patient was postictal during her EMS ride. However currently she is awake, alert with no complaints. She does admit to a seizure history but is not on any medication. She denies any tobacco, alcohol or illicit drug use. She does not have a primary care physician. She did not take or receive anything for her symptoms prior to arrival today. ED Past Medical Hx - Past Medical History Previous Medical History?: Yes Hx Seizures: Yes - Social History Smoking Status: Unknown if ever smoked - Medications Home Medications: Home Medications Medication Instructions Recorded Confirmed Last Taken Type levETIRAcetam [Keppra TAB] 500 mg PO BID #60 tablet 08/02/19 Unknown Rx ED Review of Systems ROS: Stated complaint: SEIZURE Other details as noted in HPI Comment: All other systems reviewed and negative Constitutional: denies: chills, fever Eyes: denies: eye pain, vision change ENT: denies: ear pain, throat pain Respiratory: denies: cough, shortness of breath Cardiovascular: denies: chest pain, palpitations Gastrointestinal: denies: abdominal pain Musculoskeletal: denies: back pain, arthralgia Neurological: other (seizure). denies: headache Physical Exam - Physical Exam Vital Signs: Vital Signs 08/01/19 23:50 Temperature 98.8 F Pulse Rate 117 H Respiratory 22 Rate Blood Pressure 142/97 [Left] O2 Sat by Pulse 99 Oximetry Physical Exam: GENERAL: The patient is well-developed well-nourished. HENT: Normocephalic. Atraumatic. Patient has moist mucous membranes. EYES: Extraocular motions are intact. Pupils equal reactive to light bilaterally. NECK: Supple. Trachea is midline. CHEST/LUNGS: Clear to auscultation. There is no respiratory distress noted. HEART/CARDIOVASCULAR: Regular. There is no tachycardia. There is no murmur. ABDOMEN: Abdomen is soft, nontender. Patient has normal bowel sounds. There is no abdominal distention. SKIN: Skin is warm and dry. NEURO: The patient is awake, alert, and oriented. The patient is cooperative. The patient has no focal neurologic deficits. Normal speech. Cranial nerves II through XII grossly intact. MUSCULOSKELETAL: There is no tenderness or deformity. There is no evidence of acute injury. ED Course Vital Signs 08/01/19 23:50 Temperature 98.8 F Pulse Rate 117 H Respiratory 22 Rate Blood Pressure 142/97 [Left] O2 Sat by Pulse 99 Oximetry ED Medical Decision Making - Lab Data Result diagrams: 08/02/19 00:03 08/02/19 00:03 - Medical Decision Making This patient presents to the emergency department after an alleged seizure. Since being in the emergency department she has been awake, alert, oriented and in no acute distress. She has no complaints at this time. She does have a seizure history. Labs have been unremarkable except for a urine drug screen positive for cocaine and marijuana. She does appear to have a cocaine abuse history. I discussed with the patient that the illicit drug use can decrease her seizure threshold. She was loaded with Keppra. She has been in this emergency department almost 4 hours without any return of seizure-like activity or without any acute distress. She'll be discharged home to follow up with primary care and neurology and has been given a prescription for Keppra. She will return to the ER with any worsening of her symptoms or any acute distress. - Differential Diagnosis epilepsy, hypoglycemia, electrolyte abnormalities, substance abuse Critical Care Time: No Critical care attestation.: If time is entered above; I have spent that time in minutes in the direct care of this critically ill patient, excluding procedure time. ED Disposition Clinical Impression: Seizure, Cocaine abuse Disposition: -01 TO HOME OR SELFCARE Is pt being admited?: No Condition: Stable Instructions: Cocaine Abuse (ED), Recurrent Seizures Adult (ED) Additional Instructions: Please follow-up with a primary care physician in the next few days. I am giving you a referral for a local neurologist, Dr. Dietrich, to follow up regarding your seizure disorder. Please stay away from any further illicit drug use as this will lower your seizure threshold. Take the seizure medications as prescribed. Return to the emergency Department with any worsening of your symptoms or any acute distress. Prescriptions: levETIRAcetam [Keppra TAB] 500 mg PO BID #60 tablet Referrals: BONI DIETRICH MD [Referring] - 3-5 Days PRIMARY CARE, [Primary Care Provider] - 3-5 Days Time of Disposition: 04:53
[2019-08-02 00:47] LABS: Hematocrit 33.1 % (30.3-42.9); Hemoglobin 10.5 gm/dl (10.1-14.3); Mean Corpuscular HGB Conc 32 % (30-34); Mean Corpuscular Volume 74 fl (79-97); Platelet Count 254 K/mm3 (140-440); Red Blood Count 4.47 M/mm3 (3.65-5.03); Red Cell Distribution Width 16.6 % (13.2-15.2)
[2019-08-02 00:55] LABS: BUN/Creatinine Ratio 14; Blood Urea Nitrogen 15 mg/dL (7-17); Calcium 8.8 mg/dL (8.4-10.2); Hemolysis Index 0
[2019-08-02 01:20] LABS: Amphetamine Screen,Urine PRESUMPTIVE NEGATIVE; Benzodiazepines Screen,Urine PRESUMPTIVE NEGATIVE; Methadone Screen,Urine PRESUMPTIVE NEGATIVE; Opiate Screen,Urine PRESUMPTIVE NEGATIVE
[2019-08-02 01:24] LABS: Bacteria,Urine 1+ /HPF (Negative); Bilirubin,Urine NEG (Negative); Blood,Urine NEG (Negative); Calcium Oxalate Crystals,Urine 2+; Color,Urine Yellow (Yellow); Hyaline Casts,Urine 5 /LPF; Mucus,Urine 3+ /HPF
[2019-08-02 01:34] LABS: Cannabinoid Screen,Urine PRESUMPTIVE POSITIVE; Cocaine Screen,Urine PRESUMPTIVE POSITIVE
[2019-08-02 03:22] VITALS: BP 112/75
== END 2019-08-02 03:30 | disposition home or self-care (01) ==
LOC: ED 23:36
DX: R56.9 Unspecified convulsions (principal); F14.10 Cocaine abuse, uncomplicated
CPT/HCPCS: 36415; 80048; 80307; 80320; 81001; 82962; 84703; 85027; G0480

== ENCOUNTER 2021-01-05 13:11 | Emergency (ER) | payer SELFPAY ==
[2021-01-05 13:17] VITALS: BP 130/89
[2021-01-05] MEDS ORDERED: levETIRAcetam 500 MG TAB PO ONE (13:27)
--- NOTE | 2021-01-05 13:31 | Emergency Department Report ---
ED General Adult HPI - General Chief complaint: Altered Mental Status Stated complaint: CONFUSION Time Seen by Provider: 01/05/21 13:20 Source: patient, EMS Mode of arrival: Stretcher Limitations: Altered Mental Status - History of Present Illness Initial comments: 35-year-old female presents to the emergency department for evaluation of altered mental status. She was found by bystanders who "found patient altered at the bottom of the stairwell, no signs of trauma.". Patient has a history of seizures but on arrival denies this. The record indicates this to be the case. She also denies ever being given a prescription for an anticonvulsant but last time was given a prescription for Keppra. I believe she is been here twice under similar circumstances. She does have a history of polysubstance abuse. Patient has does not have any active complaints at this time. She states that she did not hurt herself. She is not reporting a loss of consciousness. She was a bit confused as to the year and the day. She could tell me her address. She was a little unclear as to why she was here. She appeared to be largely oriented. She was awake and alert. I would assume her glucose in the field to be normal. I do not have any report to the contrary. -: unknown Treatments Prior to Arrival: none - Related Data Home Medications Medication Instructions Recorded Confirmed Last Taken No Known Home Medications [No 01/05/21 01/05/21 Unknown Reported Home Medications] Allergies Allergy/AdvReac Type Severity Reaction Status Date / Time No Known Allergies Allergy Verified 01/05/21 13:17 ED Review of Systems ROS: Stated complaint: CONFUSION Other details as noted in HPI Constitutional: denies: chills, fever Eyes: denies: eye pain, vision change ENT: denies: ear pain, throat pain Respiratory: denies: cough, shortness of breath Cardiovascular: denies: chest pain, palpitations Endocrine: no symptoms reported Gastrointestinal: denies: abdominal pain, nausea, diarrhea Genitourinary: denies: urgency, dysuria, discharge Musculoskeletal: denies: back pain, arthralgia Skin: denies: rash, lesions Neurological: as per HPI. denies: headache, weakness, paresthesias Psychiatric: denies: anxiety, depression Hematological/Lymphatic: denies: easy bleeding, easy bruising ED Past Medical Hx - Past Medical History Previous Medical History?: Yes Hx Seizures: Yes - Social History Smoking Status: Current Every Day Smoker Substance Use Type: Cocaine, Marijuana - Medications Home Medications: Home Medications Medication Instructions Recorded Confirmed Last Taken Type No Known Home Medications [No 01/05/21 01/05/21 Unknown History Reported Home Medications] ED Physical Exam - General Limitations: Altered Mental Status General appearance: alert, in no apparent distress - Head Head exam: Present: atraumatic, normocephalic - Eye Eye exam: Present: normal appearance. Absent: scleral icterus - ENT ENT exam: Present: mucous membranes moist - Neck Neck exam: Present: normal inspection - Respiratory Respiratory exam: Present: normal lung sounds bilaterally. Absent: respiratory distress - Cardiovascular Cardiovascular Exam: Present: regular rate, normal rhythm. Absent: systolic murmur, diastolic murmur, rubs, gallop - GI/Abdominal GI/Abdominal exam: Present: soft, normal bowel sounds. Absent: distended, tenderness, guarding, rebound, rigid - Extremities Exam Extremities exam: Present: normal inspection - Back Exam Back exam: Present: normal inspection - Neurological Exam Neurological exam: Present: alert, oriented X3 (Largely but got the year w garth.), CN II-XII intact. Absent: motor sensory deficit - Psychiatric Psychiatric exam: Present: normal mood, flat affect - Skin Skin exam: Present: warm, dry, intact, normal color. Absent: rash ED Course Vital Signs 01/05/21 01/05/21 13:13 13:19 Temperature 98.2 F Pulse Rate 107 H Respiratory 16 16 Rate Blood Pressure 130/89 O2 Sat by Pulse 100 99 Oximetry - Reevaluation(s) Reevaluation #1: Patient expressed desire to leave to the nurse. Laboratories not fully resulted. She signed out AGAINST MEDICAL ADVICE. 01/05/21 14:23 Reevaluation #2: Patient did confirm to me that she does not drive. She had adequate mental capacity at the time she signed out AMA. 01/05/21 14:24 ED Medical Decision Making - Lab Data Result diagrams: 01/05/21 13:36 01/05/21 13:33 Laboratory Results - last 24 hr 01/05/21 01/05/21 01/05/21 13:33 13:36 13:36 WBC 4.9 RBC 4.12 Hgb 9.5 L Hct 29.9 L MCV 73 L MCH 23 L MCHC 32 RDW 16.9 H Plt Count 261 Lymph % (Auto) 27.4 [place] % (Auto) 8.7 H Eos % (Auto) 2.2 Baso % (Auto) 2.0 H Lymph # (Auto) 1.3 [place] # (Auto) 0.4 Eos # (Auto) 0.1 Baso # (Auto) 0.1 Seg Neutrophils % 59.7 Seg Neutrophils # 2.9 Sodium 139 Potassium 4.3 Chloride 103.2 Carbon Dioxide 24 Anion Gap 16 BUN 14 Creatinine 1.0 Estimated GFR > 60 BUN/Creatinine Ratio 14 Glucose 86 Calcium 8.6 Magnesium 1.80 HCG, Qual Negative Critical care attestation.: If time is entered above; I have spent that time in minutes in the direct care of this critically ill patient, excluding procedure time. ED Disposition Clinical Impression: Seizure, History of seizure disorder Disposition: DC- LEFT AGAINST MED ADVICE Is pt being admited?: No Does the pt Need Aspirin: No Condition: Stable Referrals: PRIMARY CARE, [Primary Care Provider] - 3-5 Days
[2021-01-05 14:13] LABS: Basophils # (Auto) 0.1 K/mm3 (0.0-0.1); Eosinophils # (Auto) 0.1 K/mm3 (0.0-0.4); Eosinophils % (Auto) 2.2 % (0.0-4.3); Hematocrit 29.9 % (30.3-42.9); Hemoglobin 9.5 gm/dl (10.1-14.3); Lymphocytes # (Auto) 1.3 K/mm3 (1.2-5.4); Lymphocytes % (Auto) 27.4 % (13.4-35.0); Mean Corpuscular HGB Conc 32 % (30-34); Mean Corpuscular Volume 73 fl (79-97); Monocytes # (Auto) 0.4 K/mm3 (0.0-0.8); Monocytes % (Auto) 8.7 % (0.0-7.3); Platelet Count 261 K/mm3 (140-440); Red Blood Count 4.12 M/mm3 (3.65-5.03); Red Cell Distribution Width 16.9 % (13.2-15.2)
[2021-01-05 14:22] LABS: BUN/Creatinine Ratio 14; Blood Urea Nitrogen 14 mg/dL (7-17); Calcium 8.6 mg/dL (8.4-10.2); Hemolysis Index 3
== END 2021-01-05 14:11 | disposition left against medical advice (07) ==
LOC: ED 13:11
DX: G40.909 Epilepsy, unspecified, not intractable, without status epilepticus (principal); F17.200 Nicotine dependence, unspecified, uncomplicated; F12.90 Cannabis use, unspecified, uncomplicated; F14.90 Cocaine use, unspecified, uncomplicated
CPT/HCPCS: 36415; 80048; 83735; 84703; 85025

== ENCOUNTER 2021-05-20 15:12 | Emergency (ER) | payer SELFPAY ==
[2021-05-20 15:44] VITALS: BP 156/84
--- NOTE | 2021-05-20 16:09 | Emergency Department Report ---
ED General Adult HPI - General Chief complaint: Seizure Stated complaint: SEIZURE Time Seen by Provider: 05/20/21 15:55 Source: patient, EMS Mode of arrival: Ambulatory Limitations: No Limitations - History of Present Illness Initial comments: The patient was brought in by EMS for seizure activity Patient left before I was able to obtain a history or do a physical exam Severity scale (0 -10): 0 - Related Data Home Medications Medication Instructions Recorded Confirmed Last Taken No Known Home Medications [No 01/05/21 01/05/21 Unknown Reported Home Medications] Allergies Allergy/AdvReac Type Severity Reaction Status Date / Time No Known Allergies Allergy Verified 01/05/21 13:17 ED Review of Systems ROS: Stated complaint: SEIZURE Other details as noted in HPI Comment: Unobtainable due to pts medical conditions ED Past Medical Hx - Past Medical History Hx Seizures: Yes - Social History Substance Use Type: Other - Medications Home Medications: Home Medications Medication Instructions Recorded Confirmed Last Taken Type No Known Home Medications [No 01/05/21 01/05/21 Unknown History Reported Home Medications] ED Physical Exam - General Limitations: No Limitations, Other (Patient left before I was able to obtain a history of physical exam thus this portion of the chart cannot be completed) ED Course Vital Signs 05/20/21 15:42 Temperature 98.1 F Pulse Rate 113 H Respiratory 16 Rate Blood Pressure 156/84 [Right] O2 Sat by Pulse 100 Oximetry ED Medical Decision Making - Medical Decision Making Patient signed AMA paperwork prior to me being able to intervene and expressed my concerns for work-up Critical care attestation.: If time is entered above; I have spent that time in minutes in the direct care of this critically ill patient, excluding procedure time. ED Disposition Clinical Impression: Seizure-like activity Disposition: DC-07 LEFT AGAINST MED ADVICE Is pt being admited?: No Does the pt Need Aspirin: No Condition: Stable
== END 2021-05-20 16:16 | disposition left against medical advice (07) ==
LOC: ED 15:12
DX: R56.9 Unspecified convulsions (principal)
CPT/HCPCS: 99283

== ENCOUNTER 2022-06-14 16:01 | Emergency (ER) | payer SELFPAY ==
[2022-06-14] MEDS ORDERED: levETIRAcetam 1000 MG/NS 0.75% 1,000 MG/100 ML BAG IV ONE (19:44)
--- NOTE | 2022-06-14 19:46 | Event Note ---
ED Screening Note ED Screening Note: This initial assessment/diagnostic orders/clinical plan/treatment(s) is/are subject to change based on patients health status, clinical progression and re- assessment by fellow clinical providers in the ED. Further treatment and workup at subsequent clinical providers discretion. Patient/guardian urged not to elope from the ED as their condition may be serious if not clinically assessed and managed. 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
[2022-06-14 20:23] LABS: Hematocrit 30.4 % (30.3-42.9); Hemoglobin 9.6 gm/dl (10.1-14.3); Mean Corpuscular HGB Conc 32 % (30-34); Platelet Count 291 K/mm3 (140-440); Red Blood Count 4.44 M/mm3 (3.65-5.03); Red Cell Distribution Width 18.7 % (13.2-15.2)
[2022-06-14 20:24] LABS: Mean Corpuscular Volume 69 fl (79-97)
[2022-06-14 20:34] LABS: BUN/Creatinine Ratio 16; Blood Urea Nitrogen 13 mg/dL (7-17); Calcium 9.3 mg/dL (8.4-10.2); Hemolysis Index 3
--- NOTE | 2022-06-14 21:54 | Cat Scan Report ---
CT HEAD WITHOUT CONTRAST INDICATION / CLINICAL INFORMATION: head trauma, seizure. TECHNIQUE: All CT scans at this location are performed using CT dose reduction for ALARA by means of automated e xposure control. COMPARISON: Head CT remain in 2017 FINDINGS: HEMORRHAGE: No evidence of intracranial hemorrhage or extra-axial fluid collection. EXTRA-AXIAL SPACES: Cortical sulci, sylvian fissures and basilar cisterns have an unremarkable appear ance. VENTRICULAR SYSTEM: The third and lateral ventricles are of normal size and configuration. CEREBRAL PARENCHYMA: No areas of abnormal brain parenchymal attenuation are identified. There is no i ndication of recent infarction. MIDLINE SHIFT OR HERNIATION: There is no mass effect. CEREBELLUM / BRAINSTEM: Brainstem and cerebellum have an unremarkable appearance. MIDLINE STRUCTURES:No abnormalities of the pituitary gland or pineal region are identified. INTRACRANIAL VESSELS:No abnormalities are identified on this noncontrast head CT. ORBITS: visualized portions of the orbits have an unremarkable appearance. SOFT TISSUES of HEAD: No significant abnormality. CALVARIUM: Evaluation of bone windows reveals no abnormalities. PARANASAL SINUSES / MASTOID AIR CELLS: Visualized portions of the paranasal sinuses are free from inf lammatory mucosal disease. Mastoid air cells are normally pneumatized. There is a large nasal septal defect involving the cartilaginous portions of the nasal septum. This can be seen in the setting of c hronic recurrent inhalational injury, trauma or granulomatous disease. IMPRESSION: 1. No intracranial abnormalities on head CT without contrast. Change compared to 03/01/2017. 2. Large cartilaginous nasal septal defect. Signer Name: Oscar Colvin MD Signed: 06/14/2022 9:49 PM Workstation Name: [id number]
--- NOTE | 2022-06-14 22:07 | Cat Scan Report ---
CT MAXILLOFACIAL WITHOUT CONTRAST INDICATION / CLINICAL INFORMATION: head trauma, seizure. TECHNIQUE: All CT scans at this location are performed using CT dose reduction for ALARA by means of automated e xposure control. COMPARISON: None available. FINDINGS: FACIAL BONES: No fracture or other significant abnormality. TEETH: Innumerable dental caries are identified. In addition extensive periodontal disease is observe d. This is most advanced along the course of the superior alveolar ridge where large periapical lucen cies consistent with periapical abscesses are observed. Bony dehiscence along the buccal cortex of th e superior branch is observed locations bilaterally. DUCT INSTALLER SPACES:Evaluation of the master black belt space structures reveal no abnormalities. SALIVARY GLANDS: Parotid and submandibular salivary glands have an unremarkable appearance. PARANASAL SINUSES: No significant abnormality. NASAL CAVITY: There is a large defect in the cartilaginous nasal septum. This can be seen in the sett ing of chronic recurrent inhalational injury, trauma or granulomatous disease. ORBITS: Globes, optic nerves and extraocular muscles have an unremarkable appearance. TEMPORAL BONES:Visualized mastoid air cells and the middle ear cavities are normally pneumatized. Adv anced osteoarthritic changes are observed at the temporomandibular joints bilaterally where loss of j oint space, reactive subchondral changes and extensive condylar deformity are observed. VISUALIZED INTRACRANIAL STRUCTURES: These refer to CT head dictated separately. ADDITIONAL FINDINGS: None. IMPRESSION: 1. No indication of facial fractures. 2. Extensive dental caries and advanced periodontal disease which is most pronounced involving the samaniego perior alveolar ridge of the maxilla. 3. Large defect cartilaginous nasal septum. Signer Name: Oscar Colvin MD Signed: 06/14/2022 10:02 PM Workstation Name: [id number]
[2022-06-15 00:30] LABS: Amphetamine Screen,Urine PRESUMPTIVE NEGATIVE; Benzodiazepines Screen,Urine PRESUMPTIVE NEGATIVE; Cannabinoid Screen,Urine PRESUMPTIVE NEGATIVE; Cocaine Screen,Urine PRESUMPTIVE POSITIVE; Methadone Screen,Urine PRESUMPTIVE NEGATIVE; Opiate Screen,Urine PRESUMPTIVE NEGATIVE
[2022-06-15] MEDS ORDERED: LIDOCAINE-MPF (1%) 10 MG/1 ML VIAL 5 ML INFILTRATI ONE (03:12)
--- NOTE | 2022-06-15 07:04 | Emergency Department Report ---
ED Seizure HPI - General Chief Complaint: Seizure Stated Complaint: SEIZURES Time Seen by Provider: 06/14/22 20:37 Source: patient, EMS Mode of arrival: Stretcher Limitations: No Limitations - History of Present Illness Initial Comments: Kaye Aguila is a 36-year-old [place] female with a reported history of seizures who reports likely having a seizure prior to arrival to emergency department and an unknown etiology. States that she is not taking any new medications. She reports no fever, chills, sweats but no hemoptysis hematemesis, no no neck pain, no nausea, no vomiting, no blurry vision, no loss of vision, no headaches, rashes, foreign travel, new medications, smoking, drinking or illicit drug use. MD Complaint: possible seizure Description of Episode: other (No loss of bowel or bladder) Seizure History: known seizure disorder Place: home Possible Precipitating Event: none, head injury (Persistent laceration to the head with tablets of laceration came before or after the seizure activity) Associated Symptoms: malaise. denies: confusion, cough, syncope, tongue injury - Related Data Previous Rx's Medication Instructions Recorded Last Taken Type levETIRAcetam [Keppra TAB] 500 mg PO BID #20 tablet 06/15/22 Unknown Rx Allergies Allergy/AdvReac Type Severity Reaction Status Date / Time No Known Allergies Allergy Verified 06/14/22 16:12 ED Review of Systems ROS: Stated complaint: SEIZURES Other details as noted in HPI Comment: All other systems reviewed and negative ED Past Medical Hx - Past Medical History Hx Seizures: Yes - Social History Substance Use Type: Other - Medications Home Medications: Home Medications Medication Instructions Recorded Confirmed Last Taken Type levETIRAcetam [Keppra TAB] 500 mg PO BID #20 tablet 06/15/22 Unknown Rx ED Physical Exam - General Limitations: No Limitations General appearance: alert, in no apparent distress, lethargic (Some mild lethargy does not appear to be postictal she is sleeping and drooling) - Head Head exam: Present: normocephalic. Absent: atraumatic - Expanded Head Exam Expanded Head exam: Present: laceration (Stellate laceration centrally located to the forehead. Swollen left upper lip. Dentition) - Eye Eye exam: Present: normal appearance - ENT ENT exam: Present: mucous membranes moist, other (. Have a perforated septum of chronic history) - Neck Neck exam: Present: normal inspection, full ROM - Respiratory Respiratory exam: Present: normal lung sounds bilaterally. Absent: respiratory distress, wheezes, rales, chest wall tenderness, accessory muscle use - Cardiovascular Cardiovascular Exam: Present: regular rate, normal rhythm. Absent: systolic murmur, diastolic murmur, rubs, gallop - GI/Abdominal GI/Abdominal exam: Present: soft, normal bowel sounds. Absent: tenderness, guarding, hypoactive bowel sounds, organomegaly, pulsatile mass - Extremities Exam Extremities exam: Present: normal inspection, normal capillary refill - Back Exam Back exam: Present: normal inspection. Absent: CVA tenderness (R), CVA tenderness (L) - Neurological Exam Neurological exam: Present: alert, oriented X3, CN II-XII intact, normal gait, reflexes normal, other (. Sleepy is alert and oriented x3 slow to respond but arousable) - Psychiatric Psychiatric exam: Present: normal affect, normal mood. Absent: anxious, flat affect - Skin Skin exam: Present: warm, dry, normal color. Absent: intact (Laceration to central forehead.), rash ED Course Vital Signs 06/14/22 16:10 Pulse Rate 90 Respiratory 14 Rate Blood Pressure 145/70 [Left] O2 Sat by Pulse 100 Oximetry ED Medical Decision Making - Lab Data Result diagrams: 06/14/22 19:47 06/14/22 19:47 - Medical Decision Making Patient had a normal return to her baseline normal mental state normal physical function per my examination. Normal to compromised vision history and had no preceding fever. Does have a history of alcohol abuse but no suspicion for any other toxic ingestion. I considered but think less likely secondary etiologies of epileptic seizures to include drug/toxin etiologies, metabolic disturbances, acute TEST LEAD APPLICATION TESTING infections, intracranial hemorrhage/tumor/CVA. Cocaine was found to be system as we discussed in great detail effective for lowering seizure threshold likely exacerbating. Ms. Ortiz is trying to leave her drug history u ndisclosed and wants uncover was more forthcoming with information presentation not consistent with nonepileptic's type seizure to include syncope, neurologic etiologies, impact seizure related to trauma. unlikely stroke Critical care attestation.: If time is entered above; I have spent that time in minutes in the direct care of this critically ill patient, excluding procedure time. ED Disposition Clinical Impression: Cocaine abuse, Seizure Disposition: HOME / SELF CARE / HOMELESS Is pt being admited?: No Does the pt Need Aspirin: No Condition: Stable Instructions: Substance Abuse Testing, Seizure, Adult Prescriptions: levETIRAcetam [Keppra TAB] 500 mg PO BID #20 tablet Referrals: DELON CROWDER MD [Primary Care Provider] - 3-5 Days
[2022-06-15 07:29] VITALS: BP 149/92
== END 2022-06-15 07:42 | disposition home or self-care (01) ==
LOC: ED 16:01
DX: F14.10 Cocaine abuse, uncomplicated (principal); R56.9 Unspecified convulsions
CPT/HCPCS: 36415; 70450; 70486; 80048; 80307; 84703; 85027; 96374; 99284; J1953; J3490; 80320; G0480